=== PATIENT | female | born 1990 | race Caucasian/White ===

== ENCOUNTER → 2016-05-22 | Outpatient (CLI) | payer BC ==
[~2016-05-22] MED LIST: ACULAR 0.5%3 ML OPH; ALBUTEROL0.09 MG/A2 IH; ANTIVERT/2525 MG PO; ATARAX25 MG PO; ATIVAN1 MG PO; AUGMENTIN 875 M1 TAB PO; BIRTH CONTROL1 EAC1 PO; CLARITIN10 MG PO; DOXYCYCLINE HY100 M3 PO; EFFEXOR37.5 MG PO; EYE DROPS; LITHIUM CARBON300 M1 PO; MOTRIN800 MG PO; PREDNICOT20 MG PO; SEPTRA DS 800 M1 TAB PO; SEROQUEL XR150 MG PO; TOBREX OPHTH S2.5 ML OPH; TRAZODONE HYDR100 MG PO; VISTARIL50 MG PO; VYVANSE30 MG PO; ZANTAC150 MG PO; ZOFRAN4 MG PO
== END | disposition home or self-care (01) ==
LOC: CARD 08:23
DX: Z01.818 Encounter for other preprocedural examination (principal)

== ENCOUNTER → 2016-09-04 | Outpatient (CLI) | payer BC | END | disposition home or self-care (01) | LOC: LAB 11:34 | DX: R33.8 Other retention of urine (principal); F33.8 Other recurrent depressive disorders ==